=== PATIENT | female | born 1950 | race Caucasian/White ===

== ENCOUNTER 2024-11-05 20:49 | Emergency (ER) | payer SELFPAY ==
[2024-11-05] MEDS ORDERED: methylPREDNISolone Sod Succ 1,000 MG in Dextrose 5% in Water 100 ML IV ONE (20:59)
[2024-11-05] MEDS: hydrOXYzine HCL 100 MG/2 ML SDV IM ONE (21:05)
[2024-11-05] MEDS: methylPREDNISolone Sodium Succinate 125 MG/2 ML SDV IVPUSH ONE (21:22)
[2024-11-05] MEDS: diphenhydrAMINE 50 MG/ML SDV IVPUSH ONE (21:53)
[2024-11-05] MEDS: Sodium Chloride 0.9% 1,000 ML IV SCH (22:07)
[2024-11-05] MEDS: Ondansetron 4 MG/2 ML SDV IVPUSH ONE (22:09)
== END 2024-11-06 00:09 | disposition home or self-care (01) ==
LOC: JP.ED 20:49
DX: T63.91XA Toxic effect of contact with unspecified venomous animal, accidental (unintentional), initial encounter (principal); T78.2XXA Anaphylactic shock, unspecified, initial encounter; E78.00 Pure hypercholesterolemia, unspecified; I10 Essential (primary) hypertension; E11.9 Type 2 diabetes mellitus without complications; Z86.16 Personal history of COVID-19; Z91.030 Bee allergy status; Z79.84 Long term (current) use of oral hypoglycemic drugs; Z79.899 Other long term (current) drug therapy
CPT/HCPCS: 96372; 96374; 96375; 99283; J1200; J2405; J2919; J3410; J7030